=== PATIENT | male | born 1940 | race Caucasian/White ===

== ENCOUNTER 2016-10-30 04:41 | Observation (INO) | payer OTHER, MEDICARE ==
[~2016-10-30] VITALS: Ht 180.3 cm; Wt 112.7 kg
[~2016-10-30 04:41] MED LIST: AMARYL2 MG PO; ASPIRIN81 M2 PO; AZITHROMYCIN500 M1 PO; BLACK CHERRY PO; CEFTIN500 MG PO; FUROSEMIDE40 MG PO; GLIMEPIRIDE2 MG PO; LASIX20 MG PO; METOPROLOL TART25 MG PO; MONOPRIL20 MG PO; NITROGLYCERIN0.4 MG SL; PRESERVISION A1 EAC2 PO; PRESERVISION T1 EACH PO; SYSTANE 0.3-0.1 EACH BOTH EYES; TAMIFLU75 MG PO; XARELTO20 MG PO
[2016-10-30 05:05] LABS: HEMATOCRIT 48.5 % (38.0-50.0); MCH 32.1 PG (29.0-34.0); MCHC 33.2 G/DL (30.0-36.0); MCV 96.8 FL (86-99); MEAN PLAT.VOLUME 10.3 uM^3 (9.0-12.4); PLATELET COUNT 218 K/uL (156-360); RBC DIS.WIDTH-CV 12.8 % (11.8-14.6); RBC DIS.WIDTH-SD 45.3 % (39-53); RED BLOOD COUNT 5.01 M/uL (4.00-5.50)
[2016-10-30 05:16] LABS: CHLORIDE 102 mEq/L (99-109); POTASSIUM 3.8 mEq/L (3.7-5.4); SODIUM 142 mEq/L (136-147)
[2016-10-30 05:18] LABS: GLUCOSE 118 mg/dL (70-99)
[2016-10-30 05:19] LABS: ANION GAP 10 MEQ/L (2-14)
[2016-10-30 05:22] LABS: GFR ESTIMATE (CALCULATED) > 59 mL/min/
[2016-10-30 05:23] LABS: UREA NITROGEN (BUN) 24 mg/dL (9-23)
[2016-10-30 05:29] LABS: TROP-I INTERPRETATION NEGATIVE; TROPONIN-I 0.04 ng/mL (0.0-0.30)
[2016-10-30] MEDS ORDERED: TORSEMIDE20 MG PO (06:55)
[2016-10-30] MEDS ORDERED: GLIMEPIRIDE1 MG PO (09:42)
[2016-10-30] MEDS ORDERED: BIOTENE MOISTUR45 ML PO (09:47)
[2016-10-30 12:07] LABS: TROP-I INTERPRETATION NEGATIVE; TROPONIN-I 0.03 ng/mL (0.0-0.30)
[2016-10-30 13:49] VITALS: BP 138/63
[2016-10-30 15:25] VITALS: BP 147/67
[2016-10-30 19:04] LABS: TROP-I INTERPRETATION NEGATIVE; TROPONIN-I 0.04 ng/mL (0.0-0.30)
== END 2016-10-30 20:00 | disposition home or self-care (01) ==
LOC: EME → EDBD 04:41 → EME 04:41 → EDOF 07:43 → 5WEST 13:33
PROVIDERS: Internal Medicine
DX: R07.89 Other chest pain (principal); K21.9 Gastro-esophageal reflux disease without esophagitis; I25.10 Atherosclerotic heart disease of native coronary artery without angina pectoris; I11.0 Hypertensive heart disease with heart failure; I50.22 Chronic systolic (congestive) heart failure; E11.9 Type 2 diabetes mellitus without complications; I25.5 Ischemic cardiomyopathy; I48.2 Chronic atrial fibrillation; G47.33 Obstructive sleep apnea (adult) (pediatric); E66.9 Obesity, unspecified; Z68.34 Body mass index [BMI] 34.0-34.9, adult; Z95.0 Presence of cardiac pacemaker; Z95.1 Presence of aortocoronary bypass graft; E78.5 Hyperlipidemia, unspecified; I25.2 Old myocardial infarction
CPT/HCPCS: 71020; 80048; 84484; 85027; 93005; 99281; 99285; G0378